=== PATIENT | female | born 1955 | race Caucasian/White ===

== ENCOUNTER → 2018-01-20 | Outpatient (CLI) | payer OTHER ==
[~2018-01-20] MED LIST: ESC10 PO; EZET1TAB64 PO; ROS10 PO
--- NOTE | 2018-01-20 15:28 | RADIOLOGY IMAGING REPORT ---
FACILITY: [facility] [place] PATIENT NAME: SRINIVASA WHITE : [id number] MR: [id number] V: [id number] EXAM DATE: ORDERING PHYSICIAN: REHAN DOZIER TECHNOLOGIST: Brittney Nevarez PROCEDURE:BILATERAL DIGITAL SCREENING MAMMOGRAM WITH CAD ASSISTED INTERPRETATION & 3D TOMOSYNTHESIS COMPARISON:Prior mammograms 12/21/16, 12/11/15, 11/29/14, 03/27/13, 03/03/12. INDICATIONS:SCREENING FINDINGS: Moderately dense fibroglandular tissue is seen throughout the breasts. The parenchymal pattern has remained stable allowing for difference in mammographic technique & patient positioning. There is no evidence of malignant appearing mass, malignant appearing calcifications or other secondary sign of malignancy in either breast. DIAGNOSTIC CATEGORY 1--NEGATIVE. RECOMMENDATIONS: ROUTINE MAMMOGRAM AND CLINICAL EVALUATION. IMPRESSION: BIRADS 1: Negative No significant abnormality is seen. Dictated by: Anna Marie Cha M.D. on 01/20/2018 at 10:12 Transcribed by: SHIV on 01/20/2018 at 10:25 Approved by: Anna Marie Cha M.D. on 01/20/2018 at 15:27 [facility]
== END ==
LOC: MAMO 02:09
PROVIDERS: ATTEND Family Medicine
DX: Z12.31 Encounter for screening mammogram for malignant neoplasm of breast (principal)
CPT/HCPCS: 77063; 77067

== ENCOUNTER → 2019-02-01 | Outpatient (REF) ==
[2019-02-01 08:18] LABS: LDL CHOLESTEROL 65 mg/dl
== END ==
DX: Z02.9 Encounter for administrative examinations, unspecified (principal)

== ENCOUNTER → 2019-04-02 | Outpatient (CLI) | payer OTHER ==
--- NOTE | 2019-04-02 13:45 | RADIOLOGY IMAGING REPORT ---
FACILITY: [facility] PATIENT NAME: Jessica Driver : 1955 MR: [id number] V: [id number] EXAM DATE: ORDERING PHYSICIAN: REHAN DOZIER TECHNOLOGIST: [place] [facility] [place] : 1955 Visit/Account:[id number] Date of Sevice: 04/02/2019 BONE DENSITY Additional Pertinent history: Osteoporosis screening COMPARISON STUDIES: 07/05/2016 FINDINGS: LUMBAR SPINE: The bone mineral density (BMD) measured from L1-L4 correlates with a Z-score of 1.3 and a T-score of -0.4 which is normal bone mineral density as defined by the World Health Organization. The correspond ing risk of fracture in the lumbar spine is not increased compared with a young adult reference popul ation. This value has increased by 2.4% since the prior study. More than 5% change is considered sign ificant. HIP: Bone mineral density (BMD) measured in the left total hip correlates with a Z-score of 0.4 and a T-s core of -0.9 which is normal bone mineral density as defined by the World Health Organization. The co rresponding risk of fracture in the hip is increased 1-2 times compared with a young adult reference population. Total hip value has decreased by 1.7% since the prior study. More than 5% change is consi dered significant. Bone mineral density (BMD) measured in the left femoral neck region measures 0.95 g/cm2. IMPRESSION: 1. Lumbar spine: Normal bone mineral density. No significant change. 2. Left hip: Normal bone mineral density. Total hip value has shown no significant change. Left femoral neck: bone mineral density is 0.95 g/cm2 FRAX WHO Fracture Risk Assessment Tool link: http://www.cindy.ac.uk/FRAX/index.jsp The next DEXA scan of this patient should include the following sites: L1 - L4 and left hip PLEASE NOTE: 1. The World Health Organization defines low BMD as follows: T-score Normal > -1 Osteopenia -1 to -2.5 Osteoporosis < -2.5 without fractures Established osteoporosis < -2.5 with fractures 2. In general, you may wish to consider: Diagnosis Treatment Follow-up DEXA Normal BMD Prevention 2-3 years Osteopenia Prevention/therapy 1-2 years Osteoporosis Therapy Yearly 3. Fracture risk estimated from the T-score is more accurate for vertebral fractures (often spontaneo us) than for hip fractures. Report Dictated By: Reggie Lopez MD at 04/02/2019 1:37 PM Report E-Signed By: Reggie Lopez MD at 04/02/2019 1:38 PM ALYSSAN:AMICIVN
== END ==
LOC: RAD 01:13
PROVIDERS: ATTEND Family Medicine
DX: N95.9 Unspecified menopausal and perimenopausal disorder (principal)
CPT/HCPCS: 77080